=== PATIENT | female | born 1990 | race Caucasian/White ===

== ENCOUNTER 2018-03-26 16:50 | Emergency (ER) | payer MEDICAID ==
[~2018-03-26] VITALS: Ht 157.5 cm; Wt 84.1 kg
[2018-03-26 19:36] VITALS: BP 126/76
== END 2018-03-26 19:38 | disposition home or self-care (01) ==
LOC: EMS 16:52
DX: B02.9 Zoster without complications (principal)
CPT/HCPCS: 99283